=== PATIENT | male | born 1960 | race Caucasian/White ===

== ENCOUNTER → 2017-02-13 | Outpatient (CLI) | payer OTHER ==
[~2017-02-13] MED LIST: GABAPENTIN100 M1 PO; IBUPROFEN800 MG PO; TRAMADOL 50MG T50 M1 PO; TRAMADOL50 M1 PO
--- NOTE | 2017-02-13 15:00 | CARDIOVASCULAR REPORT ---
"Venous Exam Indications: 729.5 Pain in limb. IMPRESSIONS 1. There is no evidence of significant Reflux. 2. No evidence of deep or superficial vein thrombosis involving the left lower extremity History: Left lower extremity pain. Edema of the left leg. Risk factors: Current tobacco use. Patient denies trauma. Patient says left lower extremity pain has been occurring for several years. He states his left upper leg has experienced numbness x 1 year. Edema started 2 -3 days ago. Left lower extremity venous duplex evaluation. Doppler flow study including spectral analysis, color and tapia scale imaging. Location: Vascular laboratory. Patient status: Outpatient. Tables: Venous flow and imaging: + +-------+ + |Location |Overall|Flow properties | + +-------+ + |Left common femoral |Patent |Normal phasicity; spontaneous; | | | |normal augmentation; compressible | + +-------+ + |Left saphenofemoral junction|Patent |Compressible | + +-------+ + |Left profunda femoral |Patent |Compressible | + +-------+ + |Left femoral |Patent |Normal phasicity; spontaneous; | | | |normal augmentation; compressible | + +-------+ + |Left greater saphenous |Patent |Normal phasicity; spontaneous; | | | |normal augmentation; compressible | + +-------+ + |Left popliteal |Patent |Normal phasicity; spontaneous; | | | |normal augmentation; compressible | + +-------+ + |Left posterior tibial |Patent |Compressible | + +-------+ + |Left peroneal |Patent |Compressible | + +-------+ + |Left gastrocnemius |Patent |Compressible | + +-------+ + |Left soleal |Patent |Compressible | + +-------+ + (Report amended ) Electronically signed by: Myron Booth [id number]"
== END ==
LOC: RT 14:22
DX: M79.89 Other specified soft tissue disorders (principal)

== ENCOUNTER 2017-04-09 20:29 | Inpatient (IN) | payer OTHER ==
[~2017-04-09] VITALS: Ht 172.7 cm; Wt 100.4 kg
[2017-04-09 20:34] VITALS: BP 146/75
[2017-04-09 21:23] LABS: HEMOGLOBIN 14.6 g/dL (14.1-18.0); LYMPH # 1.4 K/mm3 (0.7-4.5); LYMPH % 17.8 % (10-50)
--- NOTE | 2017-04-09 23:09 | Emergency Room Report ---
History of Present Illness Time Seen by [id number] Presenting Problem in Triage Pt arrived:Wheelchair Presenting Problem:C/O LEFT LLE AND FOOT EDEMA FOR A COUPLE MONTHS. REPORTS HE HAD AN US ABOUT 2 MONTHS AGO AND IT WAS NEG FOR DVT. REPORTS THE SWELLING IS NOT GETTING ANY BETTER, AND HIS PCP TOLD HIM TODAY TO GO TO ER. UPON PULLING SOCK OFF LEFT FOOT, IT IS NOTED TO HAVE AN ULCER ON THE TOP OF THE FOOT WITH REDNESS AND SWELLING AROUND IT. 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 N Clinical Suspician of Infection? N Mental Status: 1 - Regular (Normal Baseline) Sepsis Risk:Low Sepsis Risk Have you (or family members/close friends) recently traveled outside the [place]? N If Yes, where/when: Have you had exposure to infectious disease within the past month? N TB? N Other? N Specify: Source patient, RN notes reviewed, family, RN/MD Exam Limitations no limitations Comment This is a 57-year-old male patient presenting to the emergency room with a sore on his LEFT dorsal foot, associated with redness and pain. Patient initially developed pain and swelling of his LEFT leg, below the knee, for the past couple of months. He went to see his PCP who sent him for a venous Doppler ultrasound, however this was negative for DVT. The sore on top of his LEFT foot has started developing gradually approximately 2 weeks ago, gradually getting worse. Patient denies any fever or chills at this time. ALLERGIES Coded Allergies: No Known Allergies (08/10/15) Home Medications Reported Medications Gabapentin (Gabapentin 100MG) 600 MG PO TID TRAMADOL HCL (Tramadol) 50 MG PO QID Ibuprofen (Ibuprofen 800MG) 800 MG PO TID History Medical History General CAD? No Angina: No DC: No Hypertension? No Hyperlipidemia? No CHF? No DVT? No PE? No COPD? No Asthma? No Anemia? No GERD? No Gastric ulcers? No GI Bleed? No Hernia? No Thyroid Problems? No Hypothyroidism? No CVA? No Seizures? No Diabetes? No Renal Insuffiency? No End Stage Renal Disease? No UTI? No Stones? No BPH? No GB Disease: No Nephritic Syndrome? No Asplenia? No Hepatitis? No Sickle Cell Disease? No Arthritis? No Migraines? No Cataracts? No Glaucoma? No MRSA? No HIV? No TB? No Anxiety? Yes Depression? No Cancer? No More? No Immunization Hx DT/Tetanus 5-10 Years Ago Surgical Hx Previous Surgery?Y TOOTH EXTRACTION SHOULDER SURGERY RIGHT CARPAL TUNNEL RELEA Family History Family Hx Diabetes Yes CAD Yes Hypertension Yes Hyperlipidemia Yes Cancer Yes TB Yes Social History Smoking Hx Smoker: Current Every Day Smoker Tobacco: Yes Type Cigarettes Packs/day 1 1/2 - 2 Packs Are you/the child exposed to second-hand smoke: No Alcohol Alcohol: No Review of Systems All Other Systems Reviewed and Negative Musculoskeletal joint pain (LEFT foot pain) Skin lumps (LEFT foot), rash (LEFT foot) Physical Exam Vital Signs Vital Signs Date Time Temp Pulse Resp B/P Pulse O2 O2 Flow FiO2 Ox Delivery Rate 04/09 2258 98.8 92 16 127/86 98 04/09 2223 92 16 127/86 98 04/09 2133 97 16 131/68 98 04/09 2125 16 04/09 2034 98.8 96 16 146/75 98 General Appearance normal appearance, WD/WN, moderate distress Neck normal inspection, non-tender, supple, full range of motion Respiratory Status Yes: trachea midline, chest symmetrical, non tender chest. No: respiratory distress. Lung Sounds bilateral: normal breath sounds, lungs clear. 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 No Comment 2229-case discussed Dr. Elizabet Aldrich, advised of patient's presentation findings , agreeable with management, to include IV vancomycin and IV Zosyn, plans to take patient to the operating room in the morning for incision and drainage. 2299-is discussed with Dr. Manzanares, advised of the above, agreeable with admission. Care transferred Dr. Manzanares at this time, will write temporary admission orders per hospital protocol. Upon patient's arrival to the floor the unit nurse will contact the PCP in order to obtain full inpatient admission orders. Results/Orders Laboratory Tests 04/09/172104: Lactic Acid 3.0 H 04/09/172104: Sodium 144, Potassium 3.5, Chloride 108 H, Carbon Dioxide 26, BUN 11, Creatinine 1.1, Estimated Creat Clear 102, Estimated GFR (MDRD) 69, Glucose 136 H, Uric Acid 4.2, Calcium 8.3 L, Total Bilirubin 0.2, AST 29, ALT 37, Alkaline Phosphatase 97, Total Protein 6.2 L, Albumin 3.0 L, Globulin 3.2, Albumin/ Globulin Ratio 0.9 L, D-Dimer 429 *H, WBC 8.1, RBC 4.49 L, Hgb 14.6, Hct 43.3, MCV 96.4, RDW 12.4, Plt Count 178, MPV 7.0 L, Gran % 71.6, Gran # 5.8, Lymphocytes % 17.8, Monocytes % 6.6, Eosinophils % 3.5, Basophils % 0.4, Lymphocytes # 1.4, Monocytes # 0.5, Eosinophils # 0.3, Basophils # 0.0, PUBS MCHC 33.7, ESR 19, MCH 32.5 H 04/09/17 0130: Lactic Acid 2.6 H Current Medication Orders Sig/Jerardo Start time Last Medication Dose Route Stop Time Status Admin Vancomycin HCl 1,500 MG Q12 04/10 0900 UNV IJ Piperacillin Sod/ 3.375 GM Q6 04/10 050 UNV 04/10 Tazobactam Sod IV 0507 Sodium Chloride 50 ML Morphine Sulfate 4 MG Q4HP PRN 04/09 2330 UNV 04/10 IV 0215 Ondansetron HCl 4 MG Q4HP PRN 04/09 2330 UNV 04/10 IV 0214 Sodium Chloride 1,000 ML .Q8H 04/09 2330 UNV IV Iopamidol 75 ML ONCE ONE 04/09 2300 UNV 04/09 IV 10/26 2301 2300 Sodium Chloride 10 ML ONCE ONE 04/09 2300 UNV 04/09 IV 04/09 230 2300 Vancomycin HCl 0 .STK-MED ONE 04/09 2236 DC .ROUTE Sodium Chloride 250 ML .STK-MED ONE 04/09 2235 DC IV Piperacillin Sod/ 0 .STK-MED ONE 04/09 2153 DC Tazobactam Sod .ROUTE Sodium Chloride 100 ML .STK-MED ONE 04/09 2152 DC IV Sodium Chloride 1,000 ML .STK-MED ONE 04/09 2149 DC IV Miscellaneous 1 EACH CONSULT PHARMACY 04/09 2145 AC Information * 04/10 0938 Piperacillin Sod/ 3.375 GM ONCE ONE 04/09 2145 DC 04/09 Tazobactam Sod IV 04/09 Sodium Chloride 50 ML Sodium Chloride 1,000 ML .Q1H1M 04/09 2145 DC 04/09 IV 04/105 2149 Sodium Chloride 10 ML PRN PRN 04/09 2145 AC IV 04/10 2141 Vancomycin HCl 2,000 MG ONCE ONE 04/09 2145 DCr 04/09 Sodium Chloride 250 ML IV 04/09 2344 2239 Morphine Sulfate 6 MG ONCE ONE 04/09 2130 DC 04/09 IV 04/09 Promethazine HCl 12.5 MG ONCE ONE 04/09 2130 DC 04/09 IV 04/09 Sodium Chloride 25 ML ONCE ONE 04/09 2130 DC 04/09 IV 04/09 Promethazine HCl 0 .STK-MED ONE 04/09 2127 DC .ROUTE Sodium Chloride 25 ML .STK-MED ONE 04/09 2127 DC IV Morphine Sulfate 0 .STK-MED ONE 04/09 2124 DC .ROUTE Sodium Chloride 10 ML PRN PRN 04/09 2100 AC 04/09 IV 04/10 Orders Procedure Date/time Status DIET-NOTHING BY MOUTH 04/10 B Active Decision to admit 04/09 2226 Active RU-CQX-TVPON-LT-W/CONTRAST 04/09 2147 Active LACTIC ACID FOLLOW UP 04/09 2138 Complete D-DIMER 04/[address] SCAN REQUEST 04/09 2051 Complete FOOT-LT-3 VIEWS 04/09 2051 Active IV SALINE LOCK 04/09 2048 Active CULTURE, BLOOD 04/09 2048 Active URIC ACID 04/09 2048 Complete LACTIC ACID 04/09 2048 Complete SED RATE 04/09 2048 Complete CBC WITH AUTO DIFF 04/09 2048 Complete CHEM 12 PROFILE 04/09 2048 Complete ADMIT PATIENT 04/09 UNK Active VITAL SIGNS 04/09 UNK Active POM NURSE JOVAN HOSE ORDER 04/09 UNK Active CODE STATUS 04/09 UNK Active PATIENT ACTIVITY ORDER 04/09 UNK Active PHYSICIANS CONSULT 04/09 UNK Active XRAY/CT/US XRAY/CT/US 1 XRAY LEFT foot- no bony deformity XR interpretation by reviewed by me Xray Results normal/NAD, no fracture seen XRAY/CT/US 2 CT other (LEFT foot) CT interpretation by discussed w/radiologist (with IV contrast) CT Results abnormal Comment See virtual radiology report *Dorsal foot abscess* Departure Departure Time of Disposition 2307 Disposition Still a Patient Clinical Impression Primary Impression: Cellulitis and abscess of foot Condition STABLE ED Critical Care Critical Care No at 0532
[2017-04-10] VITALS (19 sets, daily range): BP systolic 102–138; BP diastolic 58–84
--- NOTE | 2017-04-10 05:34 | RADIOLOGY REPORT PS360 ---
FOOT-LT-3 VIEWS HISTORY: Pain and swelling with ulceration. Open sore on top of foot ULCER/SWELLING ORDERING PHYSICIAN: Mayo Manzanares MD PATIENT AGE: 57 years COMPARISON: CT scan of the same day FINDINGS: No obvious fracture or dislocation. No lytic or blastic change. No obvious erosive lesions.. There is some mild focal soft tissue swelling overlying the mid aspect of the metatarsals dorsally. No obvious soft tissue gas. IMPRESSION: 1. Soft tissue swelling along the dorsal aspect of the midfoot. 2. No acute bony anomalies. No evidence of osteomyelitis.
--- NOTE | 2017-04-10 05:40 | RADIOLOGY REPORT PS360 ---
XH-URG-OZIIY-LT-W/CONTRAST CLINICAL INDICATION: Left foot pain and swelling. Soft tissue ulcer along the dorsal aspect of the foot. Abnormal radiograph POSSIBLE ABCESS ORDERING PHYSICIAN: Mayo Manzanares MD PATIENT AGE: 57 years COMPARISON: Radiograph of the same day FINDINGS: There is generalized extensive subcutaneous edema at the ankle and foot anteriorly. There is a focal subcutaneous fluid collection measuring 3.3 x 1.7 x 1.4 cm. This is along the dorsal aspect of the foot at the region of the distal aspect of the third metatarsal. This is superficial to the extensor tendons. This does not contain any gas but is consistent with an abscess. There is some mild skin ulceration at this region. No subadjacent bony erosive changes. The posterior aspect of the abscess is superficial to the antral aspect of the third metatarsal x 9 mm. Other nonacute findings are present which include degenerative changes within the navicular with multiple subarticular cyst of the navicular and distal calcaneus as well as a calcaneal spur and mild calcification of the plantar fascia. There is mild generalized skin thickening and osteopenia. No fracture or dislocation. IMPRESSION: 1. 3.3 x 1.7 x 1.4 cm fluid collection along the anterior aspect of the foot at the region of the distal aspect of the third metatarsal consistent with an abscess. Extensive soft tissue swelling and skin thickening consistent with cellulitis. 2. No evidence of osteomyelitis. 3. Degenerative changes. .
--- NOTE | 2017-04-10 07:07 | HISTORY AND PHYSICAL REPORT ---
Demographics: Admit date: 04/09/17 Chief complaint: LEFT foot pain PRIMARY DIAGNOSIS: LEFT foot abscess and cellulitis Allergies: Coded Allergies: No Known Allergies (08/10/15) History of present illness: History of present illness: 57-year-old male with medical history significant for chronic LEFT leg pain in the proximal 5 presented to the emergency department with a two-week history of a lesion on the dorsal LEFT foot. Patient describes the lesion initially appearing as a small black spot and over the following 2 weeks the lesion grew in size and became red, tender to touch, and painful. Patient saw his primary care provider on the day of admission and was started on antibiotics. Ultimately pain brought him to the emergency department on the evening of April 09. In the emergency department it was confirmed that he had not only cellulitis of the LEFT foot but an abscess. Podiatry service was contacted and patient has been admitted for surgical debridement. Patient does not have diabetes and denies any other medical history. He denies numbness in the feet Past medical history: Family HX Family Hx Insignificant No Diabetes Yes CAD Yes Hypertension Yes Hyperlipidemia Yes Cancer Yes TB Yes Immunization HX DT/Tetanus 5-10 Years Ago Flu Refused Pneumonia Received In Past TB Test in last year No General CAD? No Angina: No PR: No Hypertension? No Hyperlipidemia? No CHF? No DVT? No PE? No COPD? No Asthma? No Anemia? No GERD? No Gastric ulcers? No GI Bleed? No Hernia? No Thyroid Problems? No Hypothyroidism? No CVA? No Seizures? No Diabetes? No Renal Insuffiency? No UTI? No Stones? No BPH? No GB Disease: No Nephritic Syndrome? No Asplenia? No Hepatitis? No Sickle Cell Disease? No Arthritis? No Migraines? No Cataracts? No Glaucoma? No MRSA? No HIV? No TB? No Anxiety? Yes Depression? No Cancer? No More? No Additional hx: Chronic LEFT thigh pain Past Surgical HX Previous Surgery?Y TOOTH EXTRACTION SHOULDER SURGERY RIGHT CARPAL TUNNEL RELEA Current home meds: Reported Medications Gabapentin (Gabapentin 100MG) 600 MG PO TID TRAMADOL HCL (Tramadol) 50 MG PO QID Ibuprofen (Ibuprofen 800MG) 800 MG PO TID Social Hx: Smoking HX Tobacco Yes Type Cigarettes Packs/day < 1 PACK Are you/the child exposed to second-hand smoke: No Alcohol Alcohol: No Hx of Drug Use Drug Use? No Patien't marital status is Patient's support system is fair Review of systems: Constitutional No: chills, fever. Respiratory no symptoms reported. Cardiovascular no symptoms reported Gastrointestinal/Abdominal no symptoms reported Genitourinary no symptoms reported. Musculoskeletal no symptoms reported. Neurological Yes: no symptoms reported. Exam: Lab data for last 24 hours: Laboratory Tests 04/09/172104: Lactic Acid 3.0 H 04/09/172104: Sodium 144, Potassium 3.5, Chloride 108 H, Carbon Dioxide 26, BUN 11, Creatinine 1.1, Estimated Creat Clear 102, Estimated GFR (MDRD) 69, Glucose 136 H, Uric Acid 4.2, Calcium 8.3 L, Total Bilirubin 0.2, AST 29, ALT 37, Alkaline Phosphatase 97, Total Protein 6.2 L, Albumin 3.0 L, Globulin 3.2, Albumin/ Globulin Ratio 0.9 L, D-Dimer 429 *H, WBC 8.1, RBC 4.49 L, Hgb 14.6, Hct 43.3, MCV 96.4, RDW 12.4, Plt Count 178, MPV 7.0 L, Gran % 71.6, Gran # 5.8, Lymphocytes % 17.8, Monocytes % 6.6, Eosinophils % 3.5, Basophils % 0.4, Lymphocytes # 1.4, Monocytes # 0.5, Eosinophils # 0.3, Basophils # 0.0, PUBS MCHC 33.7, ESR 19, MCH 32.5 H Microbiology 04/10 0045 FOOT: Wound Culture - RECD 04/09 2105 BLOOD: Anaerobic Blood Culture - RECD 04/09 2105 BLOOD: Aerobic Blood Culture - RECD 04/09 2105 BLOOD: Anaerobic Blood Culture - RECD 04/09 2105 BLOOD: Aerobic Blood Culture - RECD Admission vital signs: 1ST Vital Signs Result Date Time Pulse Ox 98 04/09 2034 B/P 146/75 04/09 2034 Temp 98.8 04/09 2034 Pulse 96 04/09 2034 Resp 16 04/09 2034 O2 Delivery ROOM AIR 04/10 0006 Exam General appearance: alert, active, awake, no acute distress Cardiovascular: regular rate & rhythm Respiratory: clear to auscultation, good air movement, normal breath sounds Extremities: patient has a quarter-sized black lesion on the dorsum of the foot that is soft and fluctuant with surrounding erythema, subcutaneous edema and is tender to touch Plan: Problem List 1. Cellulitis and abscess of foot Plan: 1. Admit for surgical debridement and IV antibiotics at 0707
--- NOTE | 2017-04-10 07:43 | PHARMACY CLINIC NOTE ---
Patient Demographics Patient Demographics Admission date: 04/09/17 Date: 04/10/17 Time: 0743 Allergies Coded Allergies: No Known Allergies (08/10/15) HEIGHT- FT: 5 IN: 8.00 K.444 VTE General Information Labs: Laboratory Tests 04/095 Hematology Hgb (14.1 - 18.0 g/dL) 14.6 Hct (42.0 - 52.0 %) 43.3 Plt Count (142 - 424 K/mm3) 178 Disclaimer The following section includes nursing documentation that has been pulled in for pharmacy review. Patient's VTE score: 4 Patient's VTE Risk: LOW RISK Clinical trial participant? No VTE prophylaxis NQF [id number] VTE prophylaxis ordered? Yes Type of prophylaxis/treatment: JOVAN at 0743
--- NOTE | 2017-04-10 08:14 | CONSULT NOTE-PODIATRY ---
Podiatry consult Date of admission: 04/09/17 Chief complaint: Left foot abscess History: History of Present Illness: Mr. Ramirez is a 57-year-old male who presented to the ER 04/09/17 for left foot swelling and pain. Patient is nondiabetic and has a medical history significant for left leg pain for 2 weeks. Patient states he started his pain and then developed a lesion with minor redness. Progressively the redness has gotten worse and the pain has increased. Patient did see his PCP yesterday and was started on antibiotics. Patient came to the ER for pain. Patient denies numbness or tingling. Patient denies any prior problems with the lower extremities and feet. No history of vascular disease or stents in the lower extremity. In the emergency department xrays and CT were performed, confirming left foot cellulitis and abscess. Patient was admitted per Dr. Manzanares and IV vancomycin and Zosyn were started. Past Medical History: Medical History: CAD? No Angina: No VA: No Hypertension? No Hyperlipidemia? No CHF? No DVT? No PE? No COPD? No Asthma? No Anemia? No GERD? No Gastric ulcers? No GI Bleed? No Hernia? No Thyroid Problems? No Hypothyroidism? No CVA? No Seizures? No Diabetes? No Renal Insuffiency? No UTI? No Stones? No BPH? No GB Disease: No Nephritic Syndrome? No Asplenia? No Hepatitis? No Sickle Cell Disease? No Arthritis? No Migraines? No Cataracts? No Glaucoma? No MRSA? No HIV? No TB? No Anxiety? Yes Depression? No Cancer? No More? No Additional hx: Chronic LEFT thigh pain Surgical history: Previous Surgery?Y TOOTH EXTRACTION SHOULDER SURGERY RIGHT CARPAL TUNNEL RELEA Medications: Reported Medications Gabapentin (Gabapentin 100MG) 600 MG PO TID TRAMADOL HCL (Tramadol) 50 MG PO QID Ibuprofen (Ibuprofen 800MG) 800 MG PO TID Allergies: Coded Allergies: No Known Allergies (08/10/15) Family History: Family history: Postive for: CAD, DM, HTN. Social History: Smoking Hx Tobacco: Yes Smoker: Current Every Day Smoker Type: Cigarettes Packs/day: < 1 Pack Are you exposed to second hand No Alcohol: Alcohol: No Hx of Drug Use: Drug Use? No Review of Systems: Patient unresponsive? No Constitutional No: fatigue. Cardiovascular No: chest pain. Respiratory No: shortness of air. GI No: diarrhea, vomitting. Musculoskeletal Positive for: extremity pain (left foot), extremity swelling (left foot). Physical Exam: Vital signs: Vital Signs Result Date Time Resp 18 04/10 0802 Pulse Ox 97 04/10 743 B/P 110/63 04/10 743 O2 Delivery ROOM AIR 04/10 743 Temp 98.9 04/10 743 Pulse 67 04/10 743 Exam: General appearance: obese Extremities: normal capillary refill, warm, pedal pulses (weak but dooperable on left), no calf tenderness, edema (2+ pitting left worse than rig) Musculoskeletal: equal muscle strength, motor intact, sensation intact Skin: warm Neuro: normal exam Lab data: Labs: Laboratory Tests 04/09/172104: Lactic Acid 3.0 H 04/09/172104: Sodium 144, Potassium 3.5, Chloride 108 H, Carbon Dioxide 26, BUN 11, Creatinine 1.1, Estimated Creat Clear 102, Estimated GFR (MDRD) 69, Glucose 136 H, Uric Acid 4.2, Calcium 8.3 L, Total Bilirubin 0.2, AST 29, ALT 37, Alkaline Phosphatase 97, Total Protein 6.2 L, Albumin 3.0 L, Globulin 3.2, Albumin/ Globulin Ratio 0.9 L, D-Dimer 429 *H, WBC 8.1, RBC 4.49 L, Hgb 14.6, Hct 43.3, MCV 96.4, RDW 12.4, Plt Count 178, MPV 7.0 L, Gran % 71.6, Gran # 5.8, Lymphocytes % 17.8, Monocytes % 6.6, Eosinophils % 3.5, Basophils % 0.4, Lymphocytes # 1.4, Monocytes # 0.5, Eosinophils # 0.3, Basophils # 0.0, PUBS MCHC 33.7, ESR 19, MCH 32.5 H Microbiology 04/10 45 FOOT: Wound Culture - RECD 04/09 2105 BLOOD: Anaerobic Blood Culture - RECD 04/09 2105 BLOOD: Aerobic Blood Culture - RECD 04/09 2105 BLOOD: Anaerobic Blood Culture - RECD 04/09 2105 BLOOD: Aerobic Blood Culture - RECD Radiology results: Radiology results: X-ray and CT of the left foot, 04/09/17: Findings are positive for soft tissue swelling over the dorsal left foot. Findings consistent with abscess over the dorsal aspect of the third metatarsal. No evidence of osteomyelitis Diagnosis(es): 1. Cellulitis and abscess of foot Additional information: MINERVA: Vascular: DP/PT pedal pulses palpable b/l (1+ on left due to swelling but wnl on doopler), positive pedal hair growth, CFT wnl, skin temp warm, left foot 2+ pitting edema Dermatologic: no inter-digital macerations, no visible scars, dark lesion over the dorsal left 3rd met/midfoot measuring 2.8 x 2 cm. There is mild serosanginous drainage noted. The left foot is edematous and erythematous with fluctuance directly over and surrounding the lesion. Neurologic: light touch protective sensation intact, no focal deficits, normal muscle mass Musculoskeletal: muscle strength wnl b/l, moderate arch height b/l, no pain noted with active or passive ROM of the ankle, STJ or midtarsal joints. Positive pain to palpation of the left dorsal midfoot surrounding the lesion Plan: LEFT FOOT CELLULITIS AND ABSCESS: Local wound care post op discussed. We discussed surgery. All risks and benefits were discussed including but not limited to: recurrence of the infection, damage to blood vessels and nerves, bleeding, continue or worsening infection, wound complications, need for further surgery, prolonged swelling of the extremity, prolonged pain, RSD/CRPS, DVT, amputation and anesthetic complications. No guarantees were given. All questions fully answered. The patient verbalized understanding and agreed to proceed with surgery. Consent was obtained. Necessary labs and pre-op testing ordered. Continue Morphine per Dr. Manzanares. 1. NPO since midnight 2. Vanco, Zosyn 3. Labs reviewed, ordered EKG, CXR 4. Discussed smoking cessation 5. Plan: OR today 04/10/17 for left foot incision and drainage 6. [facility] plan: will need HHC arranged (unless patient can do daily dressing changes): NWB to left foot with crutches or walker, post op surgical shoe, daily dressing changes with iodophor packing and dry sterile dressing (4x4, Kerlix, 4 " karen) at 0821
--- NOTE | 2017-04-10 11:05 | CONSULT NOTE ---
Pharmacokinetic Consult Date of consult: 04/10/17 Time of consult: 1101 Referring provider: DR. SMITH Reason for consult: VANCOMYCIN DOSING Allergies: Coded Allergies: No Known Allergies (08/10/15) Home Medications: Reported Medications Gabapentin (Gabapentin 100MG) 600 MG PO TID TRAMADOL HCL (Tramadol) 50 MG PO QID Ibuprofen (Ibuprofen 800MG) 800 MG PO TID Height (feet): 5 Height (inches): 8.00 Medical History: CAD? No Angina: No [place]: No Hypertension? No Hyperlipidemia? No CHF? No DVT? No PE? No COPD? No Asthma? No Anemia? No GERD? No Gastric ulcers? No GI Bleed? No Hernia? No Thyroid Problems? No Hypothyroidism? No CVA? No Seizures? No Diabetes? No Renal Insuffiency? No UTI? No Stones? No BPH? No GB Disease: No Nephritic Syndrome? No Asplenia? No Hepatitis? No Sickle Cell Disease? No Arthritis? No Migraines? No Cataracts? No Glaucoma? No MRSA? No HIV? No TB? No Anxiety? Yes Depression? No Cancer? No More? No Additional hx: Chronic LEFT thigh pain Labs: Laboratory Tests 04/09/172104: Lactic Acid 3.0 H 04/09/172104: Sodium 144, Potassium 3.5, Chloride 108 H, Carbon Dioxide 26, BUN 11, Creatinine 1.1, Estimated Creat Clear 102, Estimated GFR (MDRD) 69, Glucose 136 H, Uric Acid 4.2, Calcium 8.3 L, Total Bilirubin 0.2, AST 29, ALT 37, Alkaline Phosphatase 97, Total Protein 6.2 L, Albumin 3.0 L, Globulin 3.2, Albumin/ Globulin Ratio 0.9 L, D-Dimer 429 *H, WBC 8.1, RBC 4.49 L, Hgb 14.6, Hct 43.3, MCV 96.4, RDW 12.4, Plt Count 178, MPV 7.0 L, Gran % 71.6, Gran # 5.8, Lymphocytes % 17.8, Monocytes % 6.6, Eosinophils % 3.5, Basophils % 0.4, Lymphocytes # 1.4, Monocytes # 0.5, Eosinophils # 0.3, Basophils # 0.0, PUBS MCHC 33.7, ESR 19, MCH 32.5 H Microbiology 04/10 0045 FOOT: Wound Culture - RECD 04/09 2105 BLOOD: Anaerobic Blood Culture - RECD 04/09 2105 BLOOD: Aerobic Blood Culture - RECD 04/09 2105 BLOOD: Anaerobic Blood Culture - RECD 04/09 2105 BLOOD: Aerobic Blood Culture - RECD Problem List: 1. Cellulitis and abscess of foot Plan: BASED ON PATIENT FACTORS, RECOMMEND VANCOMYCIN 2 GM IV ONCE, FOLLOWED BY VANCOMYCIN 1500 MG IV Q12H. WILL OBTAIN VANCOMYCIN TROUGH LEVEL TOMORROW PRIOR TO 4TH DOSE. PHARMACY WILL FOLLOW DAILY AND ADJUST APPROPRIATE. at 1108
--- NOTE | 2017-04-10 11:37 | Anesthesia Record ---
Anesthesia Record Part II Discharge time: 1159 Destination: Same day surgery PACU nurse assessment review? Yes Patient is: Awake, Stable Anesthesia complications? No at [phone]
--- NOTE | 2017-04-10 11:37 | Anesthesia Record ---
Anesthesia Record Part I Total IV fluids: 300 EBL (ml): 10 Urine Output: 0 Units of blood given: 0 B/P: 129/73 % SaO2: 94 Pulse: 84 Resps: 12 Temp: 97.8 Patient is: Awake, Nasal O2, Stable Stable to PACU at: 1129 at 1135
--- NOTE | 2017-04-10 11:53 | Operative Note-Podiatry ---
Procedure/Operative Record Procedure DATE OF PROCEDURE 04/10/17 PREOPERATIVE DIAGNOSIS Left foot cellulitis and abscess POSTOPERATIVE DIAGNOSIS Same as Preop Dx PROCEDURE PERFORMED LEFT foot incision and drainage SURGEON Bharat Aldrich DPM ANESTHESIA General 0.5 % Marcaine plain EBL (ml) 10 OPERATIVE NOTE/DISCHARGE/PLAN Indication for procedure: Mr. Ramirez is a 57-year-old male who presented to the emergency room 04/09/17 for painful red hot swollen LEFT foot. X-rays and CT confirmed abscess LEFT foot. Discussed with the patient treatment plan. Discussed incision and drainage to the LEFT foot. Risks and benefits were discussed including but not limited to: Damage to small blood vessels, delayed healing of skin, further infection, need for amputation, need for long-term IV antibiotics, prolonged pain or swelling, CRPS/RSD, anesthesia, patient and DVT. Patient understands these risks. All questions answered. No guarantees given. Informed consent obtained. LEFT foot incision and drainage: The patient was deemed an appropriate surgical candidate. With the consent signed, the patient was transferred from the preoperative holding area to the operating theater and placed on table in normal supine position. After induction of the general anesthetic the LEFT lower extremity was prepped and draped in normal sterile fashion. No tourniquet utilized. LEFT ankle block utilized. Postoperatively a total of 30 mL of half percent Marcaine plain given. Attention was directed to the LEFT foot where a large black lesion was noted over the dorsal midfoot overlying the third metatarsal shaft. The discolored block area measured approximately 2.82.1 cm. There is erythema and erythema noted around the lesion. There is an area of fluctuance directly surrounding the lesion. A 15 blade was utilized to make an incision overlying the lesion. Incision made through the skin and subcutaneous tissue immediately thick yellow milky purulence was noted. Malodor was noted. About 20 mL of purulent discharge was expressed. 15 blade was utilized and the black necrotic skin was resected. There was no deep penetration into deep fascia. A 3 L bag of saline mixed with bacitracin irrigation was utilized in a pulse lavage, cleaning the wound. After it was flushed, wound was reexplored. No tracting or sinus cavities. 2-0 Prolene was utilized as retention sutures to hold the wound edges together. Betadine soaked iodoform packing was inserted into the wound followed by dry sterile dressing to the LEFT foot. Patient was awoken from anesthesia with vital signs stable and neurovascular status intact. He was transferred to recovery for further monitoring before being transferred back to the floor. Specimens: LEFT foot wound culture Plan: Maintain dressing clean dry and intact to the LEFT foot Plan for dressing change starting tomorrow: Iodoform packing with Betadine dry sterile dressing Continue IV antibiotics Erin Arroyo Elevate LEFT foot on a pillow, do not apply ice Nonweightbearing to the LEFT foot with a postoperative shoe and DME assistance Patient will need a walker or crutches Post op xrays left foot bed bug exterminator plan: await wound cultures prior to discharge home (likely d/c home Thursday or Thursday), daily dressing changes at 1151
--- NOTE | 2017-04-10 15:07 | RADIOLOGY REPORT PS360 ---
FOOT-LT-3 VIEWS HISTORY: Pain and swelling, postop POST OP I D ORDERING PHYSICIAN: Mayo Manzanares MD PATIENT AGE: 57 years COMPARISON: 08/10/2016 FINDINGS: No fracture or dislocation. No lytic or blastic change. There is normal mineralization.. The joint spaces are well-preserved. No significant degenerative/arthritic changes. No erosive changes evident. Bandage artifact is present along the dorsum of the foot. No soft tissue gas, radiopaque foreign body, or evidence of osteomyelitis. IMPRESSION: Postsurgical changes, no acute bony pathology
--- NOTE | 2017-04-10 16:48 | ACUTE CARE PROGRESS NOTE (QUA) ---
Podiatry Progress Note Physical Exam: Date: 04/10/17 Time: 1638 Vital signs: Vital Signs Date Time Temp Pulse Resp B/P Pulse O2 O2 Flow FiO2 Ox Delivery Rate 04/10 1633 18 04/10 1630 97.8 04/10 1149 62 18 135/71 97 ROOM AIR 04/10 1141 67 18 110/63 97 04/10 1139 73 18 127/97 98 OXYGEN 04/10 1136 97.8 84 12 129/73 94 04/10 1129 98.9 75 19 129/73 97 OXYGEN 04/10 0835 98.9 67 18 110/63 97 04/10 0802 18 04/10 0743 98.9 67 18 110/63 97 ROOM AIR 04/10 0430 98.0 78 18 125/60 98 ROOM AIR 04/10 0215 18 04/10 0124 98.8 81 18 136/84 98 ROOM AIR 04/10 0006 92 04/10 0006 98.8 81 18 136/84 04/10 0006 98 ROOM AIR 04/09 2258 98.8 92 16 127/86 98 04/09 2223 92 16 127/86 98 04/09 213 97 16 131/68 98 04/09 212 16 04/09 2034 98.8 96 16 146/75 98 Exam: General appearance: normal appearance Extremities: full range of motion, normal capillary refill, warm Musculoskeletal: equal muscle strength, motor intact, sensation intact Skin: intact Neuro: normal exam Radiology results: Radiology results: Post Op 04/10/17: no soft tissue gas or OM Diagnosis(es): 1. Cellulitis and abscess of foot Plan: I saw the patient and did a dressing change. No new issues of worsening infection. Betadine soaked 1/4" packing inserted into dorsal left foot wound. Betadine 4x4, dry sterile dressing applied. Plan: Maintain dressing clean dry and intact to the LEFT foot Plan for dressing change starting tomorrow: Iodoform packing with Betadine dry sterile dressing Continue IV antibiotics Vanco, Zosyn Elevate LEFT foot on a pillow, do not apply ice Nonweightbearing to the LEFT foot with a postoperative shoe and DME assistance Patient given crutches My office faxed a note to Roxie at 1630 today, to patient's place of employment excusing him from work for one week. Will follow up on Thursday about short term disability [employer] plan: daily dressing changes, then will need to follow up once a week outpatient with me at [phone]
[2017-04-11] VITALS (7 sets, daily range): BP systolic 110–144; BP diastolic 55–75
--- NOTE | 2017-04-11 07:53 | ACUTE CARE PROGRESS NOTE (QUA) ---
Progress Notes Subjective Date 04/11/17 Time 0752 Note Patient feels good, notice a little bit of swelling around his dressing on the foot but no significant pain. Current pulmonary assessment unremarkable, dressing is clean and dry. Good distal capillary refill. Assessment/Plan Problem List 1. Cellulitis and abscess of foot Patient condition Stable Plan: continue current care This inpt stay is expected to cross 2 MNs from start of care Yes at 0753
--- NOTE | 2017-04-11 11:09 | CONSULT NOTE ---
Pharmacokinetic Consult Date of consult: 04/11/17 Time of consult: 1107 Referring provider: DR. SMITH Reason for consult: VANCOMYCIN TROUGH LEVEL Allergies: Coded Allergies: No Known Allergies (04/10/17) Home Medications: Reported Medications Gabapentin (Gabapentin 100MG) 600 MG PO TID TRAMADOL HCL (Tramadol) 50 MG PO QID Ibuprofen (Ibuprofen 800MG) 800 MG PO TID Height (feet): 5 Height (inches): 8.00 Medical History: CAD? No Angina: No AL: No Hypertension? No Hyperlipidemia? No CHF? No DVT? No PE? No COPD? No Asthma? No Anemia? No GERD? No Gastric ulcers? No GI Bleed? No Hernia? No Thyroid Problems? No Hypothyroidism? No CVA? No Seizures? No Diabetes? No Renal Insuffiency? No UTI? No Stones? No BPH? No GB Disease: No Nephritic Syndrome? No Asplenia? No Hepatitis? No Sickle Cell Disease? No Arthritis? No Migraines? No Cataracts? No Glaucoma? No MRSA? No HIV? No TB? No Anxiety? Yes Depression? No Cancer? No More? No Additional hx: Chronic LEFT thigh pain Labs: Laboratory Tests 04/11/17 0858: Vancomycin Trough 12.3 H Problem List: 1. Cellulitis and abscess of foot Plan: BASED ON VANCOMYCIN TROUGH LEVEL OF 12.3 MCG/ML, RECOMMEND PATIENT CONTINUE WITH CURRENT DOSE AND INTERVAL OF VANCOMYCIN 1500 MG Q12H AT THIS TIME. PHARMACY WILL FOLLOW DAILY AND ADJUST APPROPRIATE. OVIDIO KEY PHARMD at 2645
[2017-04-12 04:26] VITALS: BP 109/50
[2017-04-12 07:34] VITALS: BP 120/52
--- NOTE | 2017-04-12 08:18 | DISCHARGE SUMMARY STANDARD ---
Demographics Admit date: 04/09/17 Discharge date: 04/12/17 History of present illness History of present illness 57-year-old male with medical history significant for chronic LEFT leg pain in the proximal 5 presented to the emergency department with a two-week history of a lesion on the dorsal LEFT foot. Patient describes the lesion initially appearing as a small black spot and over the following 2 weeks the lesion grew in size and became red, tender to touch, and painful. Patient saw his primary care provider on the day of admission and was started on antibiotics. Ultimately pain brought him to the emergency department on the evening of April 09. In the emergency department it was confirmed that he had not only cellulitis of the LEFT foot but an abscess. Podiatry service was contacted and patient has been admitted for surgical debridement. Patient does not have diabetes and denies any other medical history. He denies numbness in the feet Hospital Course Hospital Course: Patient was admitted, antibiotics were started, with MRSA coverage. Podiatry was consulted. Patient was taken in Operating Room an abscess was debrided, and cultures were obtained. Wound care instructions were given and daily dressing changes were started. Patient was observed over the next couple of days to await cultures. He had no further problems, no fevers. Pain was well-controlled with his home doses of tramadol and gabapentin and when necessary [place]. Patient had no issues with respiratory depression or mental status changes. Cultures came back late yesterday evening showing MRSA, sensitive to Bactrim and clindamycin. Patient is doing well this morning. Cardiopulmonary assessment unchanged. He is alert, oriented. Minimal pain. Dressing looks good. He will be instructed in dressing changes to do once daily at home with assistance from his and daughter. He'll be discharged home with follow-up with podiatry, prescriptions for Bactrim and clindamycin. Three-day prescription for [place] 5 mg 1 or 2 3 times a day for 3 days was printed and given to patient for acute pain on top of his chronic pain disorder. Discharge diagnoses Problem List 1. Cellulitis and abscess of foot Medications Medications: Discharge meds are as noted. Follow up Follow up in office in: 4 DAYS with: BHARAT BOONE DPM at 0818
[2017-04-12] MEDS ORDERED: NORCO 325 MG-51 TAB PO (08:20)
[2017-04-12] MEDS ORDERED: BACTRIM DS 8001 TA1 PO (08:20)
[2017-04-12] MEDS ORDERED: CLINDAMYCIN HC300 MG PO (08:20)
[2017-04-12 09:03] VITALS: BP 120/52
[2017-04-12 13:20] VITALS: BP 120/52
== END 2017-04-12 13:19 | disposition home or self-care (01) | DRG 603 ==
LOC: ER 20:29 → 2ND 22:25 → ER 22:25 → 2ND 22:25
PROVIDERS: Emergency Medicine
PROC: 0HBNXZZ Excision of Left Foot Skin, External Approach (ICD-10-PCS; principal; 2016-04-10)
DX: L03.116 Cellulitis of left lower limb (principal); L02.612 Cutaneous abscess of left foot; A49.02 Methicillin resistant Staphylococcus aureus infection, unspecified site
CPT/HCPCS: J2405; J2543; J3370; Q9967